=== PATIENT | female | born 1970 | race Caucasian/White ===

== ENCOUNTER 2019-10-30 12:17 | Emergency (ER) | payer SELFPAY ==
[2019-10-30 13:02] LABS: A TYPE INFLUENZA AG NEGATIVE (NEGATIVE); B INFLUENZA AG NEGATIVE (NEGATIVE)
[2019-10-30] MEDS ORDERED: PROCHLORPERAZINE EDISYLATE INJ 10 MG/2 ML VIAL IV ONE (14:40)
[2019-10-30] MEDS ORDERED: KETOROLAC TROMETHAMINE INJ/PF 30 MG/1 ML SDV IV ONE (14:40)
[2019-10-30] MEDS ORDERED: NORMAL SALINE 1000 ML 1,000 ML IV ONE (14:40)
[2019-10-30] MEDS ORDERED: DIPHENHYDRAMINE HCL 50 MG/ML VIAL IV ONE (14:40)
--- NOTE | 2019-10-30 15:38 | RADIOLOGY REPORT (SQ) ---
EXAM DESCRIPTION: CHEST SINGLE VIEW IMAGES COMPLETED DATE/TIME: 10/30/2019 3:26 pm REASON FOR STUDY: cough COMPARISON: None. EXAM PARAMETERS: NUMBER OF VIEWS: One view. TECHNIQUE: Single frontal radiographic view of the chest acquired. RADIATION DOSE: NA LIMITATIONS: None. FINDINGS: LUNGS AND PLEURA: No opacities, masses or pneumothorax. No pleural effusion. MEDIASTINUM AND HILAR STRUCTURES: No masses. Contour normal. HEART AND VASCULAR STRUCTURES: Heart normal in size. Normal vasculature. BONES: No acute findings. HARDWARE: None in the chest. OTHER: No other significant finding. IMPRESSION: NO ACUTE RADIOGRAPHIC FINDING IN THE CHEST. TECHNICAL DOCUMENTATION: JOB ID: [id number] 2010 [email or web address]- All Rights Reserved Reading location - IP/workstation name: [email or web address]
--- NOTE | 2019-10-30 16:47 | ER Document Report ---
HPI - HPI Patient complains to provider of: Sore throat, headache Time Seen by Provider: 10/30/19 14:05 Onset: Other - 10 days Onset/Duration: Waxing and waning Quality of pain: Achy Pain Level: 2 Context: Patient presents complaining of pruritic skin rash for the past 10 days with sore throat. Patient also states she had a headache off and on for the past 10 days. Patient states she does have a history of migraines. Patient reports that her headache improves after taking her Fioricet. Patient does report some photophobia. Patient denies any fever. Patient reports mild cough. Associated Symptoms: Nonproductive cough, Headache, Sore throat. denies: Fever Exacerbated by: Denies Relieved by: Denies Similar symptoms previously: Yes Recently seen / treated by doctor: No - ROS ROS below otherwise negative: Yes Systems Reviewed and Negative: Yes All other systems reviewed and negative - CONSTITUTIONAL Constitutional: DENIES: Fever, Chills - EENT EENT: REPORTS: Sore Throat - NEURO Neurology: REPORTS: Headache - CARDIOVASCULAR Cardiovascular: DENIES: Chest pain - RESPIRATORY Respiratory: REPORTS: Coughing. DENIES: Trouble Breathing - GASTROINTESTINAL Gastrointestinal: DENIES: Nausea, Patient vomiting - REPRODUCTIVE Reproductive: DENIES: : - MUSCULOSKELETAL Musculoskeletal: DENIES: Back Pain, Neck Pain - DERM Skin Color: Normal Skin Problems: Rash Past Medical History - General Information source: Patient - Social History Smoking Status: Current Every Day Smoker Frequency of alcohol use: None Drug Abuse: None Occupation: None Family History: Reviewed & Not Pertinent Pulmonary Medical History: Reports: Hx Asthma Neurological Medical History: Reports: Hx Migraine Musculoskeletal Medical History: Reports Hx Arthritis - Rheumatoid arthritis, Reports Hx Fibromyalgia Past Surgical History: Reports: Hx Cholecystectomy, Hx Tubal Ligation Vertical Provider Document - CONSTITUTIONAL Agree With Documented VS: Yes Exam Limitations: No Limitations General Appearance: WD/WN, No Apparent Distress - HEENT HEENT: Atraumatic, Normal ENT Exam, Normocephalic, Pharyngeal Tenderness, Pharyngeal Erythema. negative: Pharyngeal Exudate, Tympanic Membrane Red, Tympanic Membrane Bulging - NECK Neck: Normal Inspection, Supple. negative: Lymphadenopathy-Left, Lymphadenopathy-Right Notes: No meningismus - RESPIRATORY Respiratory: Breath Sounds Normal, No Respiratory Distress - CARDIOVASCULAR Cardiovascular: Regular Rate, Regular Rhythm, No Murmur - BACK Back: Normal Inspection - MUSCULOSKELETAL/EXTREMETIES Musculoskeletal/Extremeties: MAEW, FROM - NEURO Level of Consciousness: Awake, Alert, Appropriate Motor/Sensory: No Motor Deficit - DERM Integumentary: Warm, Dry, Rash - Patient with scattered excoriated erythematous lesions to the face trunk and extremities. Lesions in various stages of healing. Minimal erythema surrounding lesions to left side of face Course - Re-evaluation Re-evalutation: 10/30/19 16:44 Patient with pruritic excoriated rash distributed generally. Discussed with patient possibility of possible bedbug insect bite although patient denies concerns about this. Will treat with steroids and antibiotics for possible early cellulitis surrounding some of the lesions to the face. Patient does report improvement of headache pain at this time. The patient presents with headache without signs of PRACTICE PHYSICIAN bleed, stroke, infection, or other serious etiology. The patient is neurologically intact. Given the extremely low risk of these diagnoses further testing and evaluation for these possibilities does not appear to be indicated at this time. The patient has been instructed to return if the symptoms worsen or change in any way. - Vital Signs Vital signs: Temp Pulse Resp BP Pulse Ox 98.1 F 84 16 124/75 97 10/30/19 12:23 10/30/19 12:23 10/30/19 12:23 10/30/19 12:23 10/30/19 12:23 - Laboratory Laboratory results interpreted by me: 10/30/19 16:44 Labs- All tests 24 hr 10/30/19 10/30/19 10/30/19 12:30 12:30 15:45 Monotest NEGATIVE Influenza A (Rapid) NEGATIVE Influenza B (Rapid) NEGATIVE Group A Strep Rapid NEGATIVE Discharge - Discharge Clinical Impression: Sore throat, Skin rash Cellulitis Qualifiers: Site of cellulitis: unspecified site Qualified Code(s): L03.90 - Cellulitis, u nspecified Condition: Stable Disposition: HOME, SELF-CARE Instructions: Cellulitis ([facility]), Cephalexin ([facility]), Headache ([facility]), Sore Throat ([facility]) Additional Instructions: Return immediately for any new or worsening symptoms Followup with your primary care provider, call tomorrow to make a followup a ppointment Throat culture is pending, we will call if you need any different treatment Prescriptions: Mupirocin [Bactroban 2% Ointment 22 gm] 1 applic TP TID #22 gm Prednisone [Deltasone 10 mg Tablet] 10 mg PO ASDIR #21 tablet Cephalexin Monohydrate [Keflex 500 mg Capsule] 500 mg PO Q6H 5 Days #20 capsule Referrals: [facility] [Provider Group] - Follow up as needed [facility] [Provider Group] - Follow up as needed
[2019-10-30 17:18] VITALS: BP 131/93
== END 2019-10-30 17:18 | disposition home or self-care (01) ==
LOC: ER 12:17
DX: L03.90 Cellulitis, unspecified (principal); R21 Rash and other nonspecific skin eruption; J02.9 Acute pharyngitis, unspecified; R51 Headache; R05 Cough; F17.200 Nicotine dependence, unspecified, uncomplicated; Z90.49 Acquired absence of other specified parts of digestive tract; Z98.51 Tubal ligation status
CPT/HCPCS: 99283; 96361; 96374; 96375; 36415; 87070; 87880; 86308; 87804; 71045; J1200; J0780; J7030

== ENCOUNTER 2020-05-03 18:22 | Emergency (ER) | payer SELFPAY ==
[2020-05-03 18:33] VITALS: BP 182/92
--- NOTE | 2020-05-03 18:56 | ER Document Report ---
ED Respiratory Problem - General Chief Complaint: Cough Stated Complaint: COUGH,SHORT OF BREATH,CHILLS Time Seen by Provider: 05/03/20 18:45 Notes: CHIEF COMPLAINT: Cough for 1 week, positive Covid exposure HPI: 49-year-old female presenting for positive Covid exposure over a week ago with a cough for 1 week without definitive fevers. Some occasional shortness of breath but patient states she is an asthmatic without an inhaler. No abdominal pain nausea vomiting. No chest pain. ROS: See HPI - all other systems were reviewed and are otherwise negative Constitutional: no fever Eyes: no drainage, no blurred vision ENT: no runny nose, no sore throat Cardiovascular: no chest pain Resp: + SOB, + cough GI: no vomiting, no diarrhea, no abdominal pain : no dysuria Integumentary: no rash Allergy: no hives Musculoskeletal: no extremity pain or swelling Neurological: no numbness/tingling, no weakness MEDICATIONS: I agree with the patient medications as charted by the RN. ALLERGIES: I agree with the allergies as charted by the RN. PAST MEDICAL HISTORY/PAST SURGICAL HISTORY: Reviewed and agree as charted by RN. SOCIAL HISTORY: Reviewed and agree as charted by RN. FAMILY HISTORY: No significant familial comorbid conditions directly related to patient complaint EXAM: Reviewed vital signs as charted by RN. CONSTITUTIONAL: Alert and oriented and responds appropriately to questions. Well-appearing; well-nourished HEAD: Normocephalic; atraumatic EYES: PERRL; Conjunctivae clear, sclerae non-icteric ENT: normal nose; no rhinorrhea; moist mucous membranes; pharynx without lesions noted, no uvula edema or deviation, no tonsillar hypertrophy, phonation normal NECK: Supple without meningismus; non-tender; no cervical lymphadenopathy, no masses CARD: RRR; no murmurs, no clicks, no rubs, no gallops; symmetric distal pulses RESP: Normal chest excursion without splinting or tachypnea; breath sounds noted to have very faint wheezes posterior lobes, no rhonchi, no rales, pulse oximetry 97% on room air not hypoxic ABD/GI: Obese, normal bowel sounds; non-distended; soft, non-tender, no rebound, no guarding; no palpable organomegaly or masses. BACK: The back appears normal and is non-tender to palpation, there is no CVA tenderness EXT: Normal ROM in all joints; non-tender to palpation; no cyanosis, no effusions, no edema SKIN: Normal color for age and race; warm; dry; good turgor; no acute lesions noted NEURO: Moves all extremities equally; Motor and sensory function intact PSYCH: The patient's mood and manner are appropriate. Grooming and personal hygiene are appropriate. MDM: 49-year-old female with asthma history presenting for cough with occasional shortness of breath over the last week with a positive Covid exposure just prior to that. She likely has Covid. Will obtain a Covid test. Will obtain a chest x-ray to evaluate for infiltrate. If there is pneumonia noted on the x-ray we will treat with Zithromax, Decadron, albuterol, if there is no infiltrate will treat with steroids and albuterol given her asthma history The patient was evaluated during the global COVID-19 pandemic and that diagnosis was suspected/considered upon their initial presentation. Their evaluation, treatment and testing was consistent with current guidelines for patients who present with complaints or symptoms that may be related to COVID-19 - Related Data Allergies/Adverse Reactions: ketorolac [From Toradol] Allergy (Unknown, Verified 05/03/20 18:43) Penicillins Allergy (Verified 05/03/20 18:43) Anaphylaxis Home Medications: tylenol cold and flu. zinc. vitamin d. vitamin c. mucinex. multivitamin Past Medical History - Social History Smoking Status: Current Every Day Smoker Chew tobacco use (# tins/day): No Frequency of alcohol use: None Drug Abuse: None Family History: Reviewed & Not Pertinent Patient has homicidal ideation: No Pulmonary Medical History: Reports: Hx Asthma Neurological Medical History: Reports: Hx Migraine Musculoskeletal Medical History: Reports Hx Arthritis - Rheumatoid arthritis, Reports Hx Fibromyalgia Past Surgical History: Reports: Hx Cholecystectomy, Hx Tubal Ligation Physical Exam - Vital signs Vitals: Temp Pulse Resp BP Pulse Ox 97.9 F 84 18 182/92 H 98 05/03/20 18:25 05/03/20 18:25 05/03/20 18:25 05/03/20 18:25 05/03/20 18:25 Course - Re-evaluation Re-evalutation: 05/03/20 19:49 Chest x-ray on my review does not show evidence of an infiltrate suggest the need for antibiotics. Covid test is pending. Will give a dose of Decadron in t he ER, placed on Decadron and albuterol given her asthma history - Vital Signs Vital signs: Temp Pulse Resp BP Pulse Ox 97.9 F 84 18 182/92 H 98 05/03/20 18:25 05/03/20 18:25 05/03/20 18:25 05/03/20 18:25 05/03/20 18:25 - Laboratory Results Critical Laboratory Results Reviewed: No Critical Results - Radiology Results Critical Radiology Results Reviewed: No Critical Results Discharge - Discharge Clinical Impression: Person under investigation for COVID-19, Cough Condition: Stable Disposition: HOME, SELF-CARE Instructions: COVID-19 Guidance for Persons Under Investigation Additional Instructions: Use the albuterol inhaler 2 puffs every 4 hours as needed for shortness of breath or wheezing. Take the Decadron as prescribed you were given today's dose in the emergency department. Follow-up with your primary care provider for reevaluation of symptoms call for appointment return for worsened shortness of breath episodes. You are considered a person under investigation for COVID-19 at this time self quarantine at home pending your test results may take 2 to 5 days. You should receive notification from the hospital about your test results Prescriptions: Dexamethasone [Decadron 4 Mg Tablet] 4 mg PO DAILY #7 tablet Albuterol Sulfate [Proair HFA Inhalation Aerosol 8.5 gm MDI] 2 puff IH Q4H PRN #1 mdi PRN Reason:
[2020-05-03] MEDS ORDERED: DEXAMETHASONE 4 MG TABLET PO ONE (19:48)
--- NOTE | 2020-05-03 19:56 | RADIOLOGY REPORT (SQ) ---
EXAM DESCRIPTION: CHEST SINGLE VIEW IMAGES COMPLETED DATE/TIME: 05/03/2020 4:46 pm REASON FOR STUDY: cough COMPARISON: 10/30/2019 EXAM PARAMETERS: NUMBER OF VIEWS: One view. TECHNIQUE: Single frontal radiographic view of the chest acquired. RADIATION DOSE: NA LIMITATIONS: None. FINDINGS: LUNGS AND PLEURA: No opacities, masses or pneumothorax. No pleural effusion. MEDIASTINUM AND HILAR STRUCTURES: No masses. Contour normal. HEART AND VASCULAR STRUCTURES: Heart normal in size. Normal vasculature. BONES: No acute findings. HARDWARE: None in the chest. OTHER: No other significant finding. IMPRESSION: NO ACUTE RADIOGRAPHIC FINDING IN THE CHEST. TECHNICAL DOCUMENTATION: JOB ID: [id number] 2010 [employer]- All Rights Reserved Reading location - IP/workstation name: [email or web address]
== END 2020-05-03 20:04 | disposition home or self-care (01) ==
LOC: ER 18:22
DX: R05 Cough (principal); R06.02 Shortness of breath; R68.83 Chills (without fever); F17.200 Nicotine dependence, unspecified, uncomplicated; Z20.822 Contact with and (suspected) exposure to COVID-19; Z88.0 Allergy status to penicillin; Z90.49 Acquired absence of other specified parts of digestive tract; Z98.51 Tubal ligation status
CPT/HCPCS: 99284; 36415; 87635; 71045; J8540; C9803

== ENCOUNTER 2020-05-10 21:22 | Emergency (ER) | payer SELFPAY ==
[2020-05-10] MEDS ORDERED: IPRATROPIUM/ALBUTEROL 0.5-2.5 MG/3 ML AMPUL NEB ONE (21:56)
--- NOTE | 2020-05-10 21:57 | ER Document Report ---
ED Medical Screen (RME) - General Chief Complaint: Breathing Difficulty Stated Complaint: DIFFICULTY BREATHING Time Seen by Provider: 05/10/20 21:47 Mode of Arrival: Ambulatory Information source: Patient Notes: HPI; 49-year-old female presents to the emergency room with worsening shortness of breath that started around 26 April. Has a history of asthma using inhaler without relief. States she was seen here on May 03 and then was called last week and told that her Covid test was positive. She was started on steroids and vitamins states she is not improving. Denies any recent travel. Denies any chest pain, denies any difficulty breathing. States her shortness of breath is worse with exertion. PE: Alert and oriented x3. Lungs: Scattered wheezes no rales no rhonchi. Heart: Regular rate rhythm without murmurs, rubs, gallops. I have greeted and performed a rapid initial assessment of this patient. A comprehensive ED assessment and evaluation of the patient, analysis of test results and completion of the medical decision making process will be conducted by additional ED providers. I have specifically instructed the patient or family members with the patient to immediately return to any nursing staff should anything change in the patient's condition or with their chief complaint. TRAVEL OUTSIDE OF THE [place] IN LAST 30 DAYS: No - Related Data Allergies/Adverse Reactions: ketorolac [From Toradol] Allergy (Unknown, Verified 05/03/20 18:43) Penicillins Allergy (Verified 05/03/20 18:43) Anaphylaxis Past Medical History Pulmonary Medical History: Reports: Hx Asthma Neurological Medical History: Reports: Hx Migraine Musculoskeltal Medical History: Reports Hx Arthritis - Rheumatoid arthritis, Reports Hx Fibromyalgia Past Surgical History: Reports: Hx Cholecystectomy, Hx Tubal Ligation Physical Exam - Vital signs Vitals: Temp Pulse Resp BP Pulse Ox 97.7 F 78 18 151/88 H 98 05/10/20 21:33 05/10/20 21:33 05/10/20 21:33 05/10/20 21:33 05/10/20 21:33 Course - Vital Signs Vital signs: Temp Pulse Resp BP Pulse Ox 97.7 F 78 18 151/88 H 98 05/10/20 21:33 05/10/20 21:33 05/10/20 21:33 05/10/20 21:33 05/10/20 21:33
[2020-05-10 22:47] LABS: ABSOLUTE BASOPHILS # (AUTO) 0.1 10^3/uL (0.0-0.2); TOTAL CELLS COUNTED % (AUTO) 100 %
--- NOTE | 2020-05-10 22:56 | RADIOLOGY REPORT (SQ) ---
EXAM DESCRIPTION: XR CHEST 1 VIEW COMPLETED DATE/TME: 05/10/2020 22:20 CLINICAL HISTORY: 49 years, Female, dyspnea COMPARISON: 05/03/2020 chest NUMBER OF VIEWS: 1 TECHNIQUE: Portable chest LIMITATIONS: None. FINDINGS: Heart size is normal. Lungs are clear. No pneumothorax IMPRESSION: Negative chest copyright 2011 [employer]- All Rights Reserved
[2020-05-10 23:19] LABS: ALBUMIN 3.5 g/dL (3.5-5.0); ALKALINE PHOSPHATASE 98 U/L (38-126); ASPARTATE AMINO TRANSFERASE 18 U/L (14-36); BILIRUBIN,DIRECT 0.2 mg/dL (0.0-0.4); BILIRUBIN,TOTAL 0.4 mg/dL (0.2-1.3); BLOOD UREA NITROGEN 20 mg/dL (7-20); CALCIUM 8.7 mg/dL (8.4-10.2); GLUCOSE 162 mg/dL (75-110); POTASSIUM 4.4 mmol/L (3.6-5.0); TOTAL PROTEIN 6.7 g/dL (6.3-8.2)
[2020-05-10 23:24] LABS: ABSOLUTE EOSINOPHILS # (AUTO) 0.6 10^3/uL (0.0-0.6); ABSOLUTE LYMPHOCYTES (AUTO) 4.2 10^3/uL (0.5-4.7); ABSOLUTE NEUT (AUTO) 9.9 10^3/uL (1.7-8.2); BASOPHILS % (AUTO) 0.4 % (0-2); CARBON DIOXIDE 30 mmol/L (22-30); CHLORIDE 102 mmol/L (98-107); HEMATOCRIT 44.3 % (36.0-47.0); HEMOGLOBIN 14.5 g/dL (12.0-15.5); LYMPHOCYTES % (AUTO) 26.7 % (13-45); MEAN CORPUSCULAR HEMOGLOBIN 27.9 pg (27.0-33.4); MEAN CORPUSCULAR HGB CONC 32.7 g/dL (32.0-36.0); MEAN CORPUSCULAR VOLUME 85 fl (80-97); MONOCYTES % (AUTO) 6.3 % (3-13); PLATELET COUNT 300 10^3/uL (150-450); RED BLOOD COUNT 5.18 10^6/uL (3.72-5.28); SEGMENTED NEUTROPHILS % (AUTO) 62.6 % (42-78); WHITE BLOOD COUNT 15.8 10^3/uL (4.0-10.5)
[2020-05-10 23:31] LABS: ANION GAP 3 (5-19)
[2020-05-11] MEDS ORDERED: IPRATROPIUM/ALBUTEROL 0.5-2.5 MG/3 ML AMPUL NEB ONE (01:17)
--- NOTE | 2020-05-11 05:41 | ER Document Report ---
ED Respiratory Problem - General Chief Complaint: Shortness Of Breath Stated Complaint: DIFFICULTY BREATHING Time Seen by Provider: 05/10/20 21:47 Primary Care Provider: [facility] [Provider Group] - Follow up as needed [facility] [Provider Group] - Follow up as needed [facility] [Provider Group] - Follow up as needed [facility] [Provider Group] - Follow up as needed Mode of Arrival: Ambulatory Information source: Patient Notes: 49-year-old female presented to ED for increased shortness of breath that started on April 26. She states she does have a history of asthma with inhaler but was not getting any relief. She states she came to the emergency room on the and was diagnosed with Covid. She states she was started on steroids and vitamins and she was taking them she was getting better and then she started getting worse. She states she has not had any new travels or any other reasons for her shortness of breath. She states she just moved to this area about a year and a half ago and has not followed up with her primary doctor in this area. She was seen in triage was given breathing treatment blood and x- rays were completed. X-ray is clear she did have an white cells of 15.8 with segs of 62 is appropriate with Covid. Chemistries are negative. Patient states that she does not have a lot of her albuterol inhaler left but she does feel much better than she did when she came in. She states she is ready to go home as long as she has a prescription for her albuterol. Constitutional: Negative for fever. HENT: Negative for sore throat. Eyes: Negative for visual changes. Cardiovascular: Negative for chest pain. Respiratory: Patient states she came in for shortness of breath cough and not able to get of breath at times. She states after receiving a breathing treatment in the emergency room she feels much better is able to breathe much better and is ready to go home. She states she will need an butyryl inhaler. Gastrointestinal: Negative for abdominal pain, vomiting or diarrhea. Genitourinary: Negative for dysuria. Musculoskeletal: Negative for back pain. Skin: Negative for rash. Neurological: Negative for headaches, weakness or numbness. 10 point ROS negative except as marked above and in HPI. VITAL SIGNS: Within normal limits. GENERAL: No acute distress, non-toxic appearance. HEAD: Normal with no signs of head trauma. EYES: PERRLA, EOMI, conjunctiva normal, no discharge. EARS: Hearing grossly intact. NOSE: Normal. THROAT: Oropharynx is normal. NECK: Normal range of motion, no tenderness, supple, no lymphadenopathy, No adenopathy, no JVD. CHEST: Clear breath sounds bilaterally. No wheezes, rales, or rhonchi. Lungs are clear at this time. She no longer has any wheezes that were noted in the triage area CARDIAC: Regular rate and rhythm. S1 and S2, without murmurs, gallops, or rubs. VASCULAR: No Edema. Peripheral pulses normal and equal in all extremities. ABDOMEN: Normal and soft with no tenderness, no masses or pulsatile masses. GASTROINTESTINAL: Bowel sounds normal GENITOURINARY: Normal, No tenderness LYMPATHTIC: No lymphadenopathy noted. MUSCULOSKELETAL: Good range of motion of all major joints. Extremities without clubbing, cyanosis or edema. NEUROLOGICAL: Alert and oriented x 3. No focal sensory or strength deficits. Speech normal. Follows commands appropriately. PSYCHIATRIC: Normal Affect, judgement and mood. SKIN: Normal appearance with no rashes or lesions. TRAVEL OUTSIDE OF THE [place] IN LAST 30 DAYS: No - HPI Patient complains to provider of: Asthma, Short of breath, Other - Covid Onset: Other - April 26 Duration: Better Initiating Event: URI, Other - Covid Severity: None Pain Level: Denies Context: Hx asthma, Smoker Cough: Nonproductive Sputum amount: None At home treatment: Bronchodilators, Oral steroids Associated symptoms: Cough, PND, Runny nose, Short of breath Similar symptoms previously: Yes Recently seen / treated by doctor: Yes - Related Data Allergies/Adverse Reactions: ketorolac [From Toradol] Allergy (Unknown, Verified 05/03/20 18:43) Penicillins Allergy (Verified 05/03/20 18:43) Anaphylaxis Home Medications: vitamins Past Medical History - General Information source: Patient - Social History Smoking Status: Current Every Day Smoker Cigarette use (# per day): Yes - Per day Smoking Education Provided: Yes - 2 min Frequency of alcohol use: None Drug Abuse: None Family History: Reviewed & Not Pertinent Patient has suicidal ideation: No Patient has homicidal ideation: No - Past Medical History Cardiac Medical History: Reports: None Pulmonary Medical History: Reports: Hx Asthma, Other - Covid EENT Medical History: Reports: None Neurological Medical History: Reports: None, Hx Migraine Endocrine Medical History: Reports: None Renal/ Medical History: Reports: None Musculoskeletal Medical History: Reports Hx Arthritis - Rheumatoid arthritis, Reports Hx Fibromyalgia Past Surgical History: Reports: Hx Cholecystectomy, Hx Tubal Ligation Physical Exam - Vital signs Vitals: Temp Pulse Resp BP Pulse Ox 97.7 F 78 18 151/88 H 98 05/10/20 21:33 05/10/20 21:33 05/10/20 21:33 05/10/20 21:33 05/10/20 21:33 Course - Re-evaluation Re-evalutation: 05/11/20 08:21 Patient has been on steroids since May 03. She states she just finished the steroids yesterday. She stated after the neb treatment she felt much better and was ready to go home. She was diagnosed with Covid on the . She states she is taking all the medication she is supposed to be taking. I did send a prescription for refill on her albuterol inhaler to her pharmacy of choice. She was discharged home with instructions to follow-up with her primary care doctor. Did give her a list of primary care doctors. - Vital Signs Vital signs: Temp Pulse Resp BP Pulse Ox 97.6 F 66 18 129/63 H 98 05/11/20 05:51 05/11/20 05:51 05/11/20 05:51 05/11/20 05:51 05/11/20 05:51 - Laboratory Results Result Diagrams: 05/10/20 22:11 05/10/20 22:11 Laboratory Results Interpreted: 05/10/20 05/10/20 22:11 22:11 WBC 15.8 H RDW 15.0 H Absolute Neuts (auto) 9.9 H Sodium 135.0 L Anion Gap 3 L Glucose 162 H Critical Laboratory Results Reviewed: No Critical Results - Radiology Results Critical Radiology Results Reviewed: No Critical Results Discharge - Discharge Clinical Impression: COVID-19 URI (upper respiratory infection) Qualifiers: URI type: unspecified viral URI Qualified Code(s): J06.9 - Acute upper respiratory infection, unspecified Condition: Stable Disposition: HOME, SELF-CARE Additional Instructions: You were seen today for increased shortness of breath due to your Covid. You stated you are taking all the medications that you were ordered but your a lbuterol inhaler was not helping your shortness of breath. Stated you have not found a primary care doctor in this area after moving a year and a half ago because you have not needed it. Have written you a prescription for another albuterol inhaler. I have also given you name and number of local primary care doctors to find you a primary care after you are over your Covid. Please continue your quarantine as you were previously instructed Patient was provided with discharge information including: As a person under investigation for Covid 19, the [place] department of Health and Human Services, division of public health advises you to adhere to the following guidance until your test results are reported to you. If your test result is positive, you will receive additional information from your provider and your local health department at that time. Remain at home until you are cleared by the health provider or public health authorities. Keep a log of visitors to your home, notify any visitors to your home of your isolation status. If you plan to move to a new address or leave the county, notify the local health department in your County. Call your doctor or seek care if you have an urgent medical need. Before seeking medical care, call ahead to get instructions from the provider before arriving at the medical office clinic or hospital. Notify them that you are being tested for the virus that causes Covid 19 so that arrangements can be made, as necessary, to prevent transmission to others in the healthcare setting. Next, notify the local health department in your county. If a medical emergency arises and you need to call 911, inform the first resp onders that you are being tested for the virus that causes Covid 19. Next, notify the local health department in your county. Prescriptions: Albuterol Sulfate [Proair HFA Inhalation Aerosol 8.5 gm MDI] 2 puff IH Q4H PRN #1 mdi PRN Reason: Forms: Smoking Cessation Education, Elevated Blood Pressure Referrals: [facility] [Provider Group] - Follow up as needed [facility] [Provider Group] - Follow up as needed [facility] [Provider Group] - Follow up as needed [facility] [Provider Group] - Follow up as needed
[2020-05-11 05:54] VITALS: BP 129/63
--- NOTE | 2020-05-11 06:11 | EKG REPORT ---
SEVERITY:- NORMAL ECG - SINUS RHYTHM : Confirmed by: Ulisses Peña MD 11-May-2020 06:10:49
--- OUTSIDE RECORDS SUMMARY | 2020-05-13 09:19 | XMS REPORT ---
:1970 Author Organization [facility] Address [facility] [address] [place] [id number] Care Team Providers Name Role Phone Unavailable Unavailable Unavailable Allergies, Adverse Reactions, Alerts This patient has no known allergies or adverse reactions. Medications This patient has no known medications. Problems This patient has no known problems. Procedures This patient has no known procedures. Results Test Description Test Time Test Comments Text Results Atomic Results Result Comments SARS-CoV-2 RNA Resp Ql YAHAIRA+probe 2020-05-05 00:00:00 Test Item Value Reference Range Comments SARS-CoV-2 RNA Resp Ql YAHAIRA+probe [facility] ID: (test code = [id number]) [id number] Social History This patient has no known social history. Vital Signs This patient has no known vital signs.
== END 2020-05-11 05:56 | disposition home or self-care (01) ==
LOC: ER 21:22
DX: U07.1 COVID-19 (principal); J06.9 Acute upper respiratory infection, unspecified; J45.909 Unspecified asthma, uncomplicated; R06.02 Shortness of breath; R05 Cough; R09.82 Postnasal drip; R09.89 Other specified symptoms and signs involving the circulatory and respiratory systems; F17.210 Nicotine dependence, cigarettes, uncomplicated; Z79.899 Other long term (current) drug therapy; Z88.8 Allergy status to other drugs, medicaments and biological substances; Z87.892 Personal history of anaphylaxis; Z88.0 Allergy status to penicillin
CPT/HCPCS: 36415; 71045; 80053; 84484; 85025; 93005; 93010; 94640; 99285